=== PATIENT | female | born 1995 | race Two or more races ===

== ENCOUNTER 2020-05-25 11:49 | Emergency (ER) | payer MEDICAID ==
[~2020-05-25] VITALS: Ht 172.7 cm; Wt 69.0 kg
[~2020-05-25 11:49] MED LIST: ACET-3161 PO; DOCU-138 PO; FERR325C PO
[2020-05-25 15:00] VITALS: BP 150/83
[2020-05-25 15:02] LABS: BASOPHILS % 0.4 % (0.0-2.0); EOSINOPHILS % 3.3 % (0.0-5.0); HEMATOCRIT. 32.4 % (36.0-48.0); HEMOGLOBIN. 10.6 g/dL (12.0-16.0); LYMPHOCYTES % 25.9 % (20.0-50.0); MEAN CORPUSCULAR HEMOGLOBIN 24.2 pg (28.0-32.0); MEAN CORPUSCULAR VOLUME 74.1 fL (81.0-99.0); MEAN PLATELET VOLUME 7.7 fl (7.4-10.4); MONOCYTES % 10.1 % (2.0-8.0); NEUTROPHILS % 60.3 % (40.0-76.0); PLATELET 399 x1000/uL (130-400); RED BLOOD CELL COUNT 4.37 mill/uL (4.2-5.4); RED CELL DISTRIBUTION WIDTH 19.1 % (11.6-14.6)
[2020-05-25 15:11] LABS: INR 0.9; PROTHROMBIN TIME 10.1 sec (9.6-11.0)
[2020-05-25 15:13] LABS: CHLORIDE 104 mEq/L (98-107)
[2020-05-25] MEDS ORDERED: NITR-87 MT (15:47)
== END 2020-05-25 16:29 | disposition home or self-care (01) ==
LOC: ER 11:49
DX: N39.0 Urinary tract infection, site not specified (principal); Z79.899 Other long term (current) drug therapy
CPT/HCPCS: 36415; 80053; 85025; 93005; 99284

== ENCOUNTER 2021-09-12 19:36 | Emergency (ER) | payer MEDICAID, OTHER ==
[~2021-09-12] VITALS: Ht 154.9 cm; Wt 83.6 kg
[~2021-09-12 19:36] MED LIST changes: +NITR-87 MT
[2021-09-12 20:38] VITALS: BP 147/106
[2021-09-13] MEDS ORDERED: ACETAMINOPHEN 325MG TABLET PO ONE (00:15)
[2021-09-13] MEDS ORDERED: PENI500T MT (00:34)
== END 2021-09-13 00:41 | disposition left against medical advice (07) ==
LOC: ER 19:36
DX: K04.7 Periapical abscess without sinus (principal); E11.9 Type 2 diabetes mellitus without complications; Z79.899 Other long term (current) drug therapy
CPT/HCPCS: 99281